=== PATIENT | male | born 1945 | race Caucasian/White ===

== ENCOUNTER 2020-06-21 06:00 | Outpatient (RCR) | payer MEDICARE, OTHER, SELFPAY | END 2020-06-29 23:59 | disposition home or self-care (01) | LOC: WPT 06:00 | PROVIDERS: PCP Nurse Practitioner Family; Referring Provider Nurse Practitioner Family; Visit Provider Nurse Practitioner Family | DX: M54.9 Dorsalgia, unspecified (principal); G89.29 Other chronic pain | CPT/HCPCS: 97110; 97162 ==

== ENCOUNTER 2020-06-30 06:00 | Outpatient (RCR) | payer MEDICARE, OTHER, SELFPAY | END 2020-07-30 23:59 | disposition home or self-care (01) | LOC: WPT 06:00 | PROVIDERS: PCP Nurse Practitioner Family; Referring Provider Nurse Practitioner Family; Visit Provider Nurse Practitioner Family | DX: M54.9 Dorsalgia, unspecified (principal); G89.29 Other chronic pain | CPT/HCPCS: 97110; 97112; 97140 ==

== ENCOUNTER 2020-07-31 06:00 | Outpatient (RCR) | payer MEDICARE, OTHER, SELFPAY | END 2020-08-29 23:59 | disposition home or self-care (01) | LOC: WPT 06:00 | PROVIDERS: PCP Nurse Practitioner Family; Referring Provider Nurse Practitioner Family; Visit Provider Nurse Practitioner Family | DX: M54.9 Dorsalgia, unspecified (principal); G89.29 Other chronic pain | CPT/HCPCS: 97110; 97140; 97164 ==

== ENCOUNTER 2020-08-30 06:00 | Outpatient (RCR) | payer MEDICARE, OTHER, SELFPAY | END 2020-09-29 23:59 | disposition home or self-care (01) | LOC: WPT 06:00 | PROVIDERS: PCP Nurse Practitioner Family; Referring Provider Nurse Practitioner Family; Visit Provider Nurse Practitioner Family | DX: M54.9 Dorsalgia, unspecified (principal); G89.29 Other chronic pain | CPT/HCPCS: 97110; 97140 ==

== ENCOUNTER → 2022-01-24 12:06 | Outpatient (BNVA) | payer MEDICARE, SELFPAY | PROVIDERS: PCP Nurse Practitioner Family; Visit Provider Family Medicine | DX: Z70.8 Other sex counseling (principal); F41.9 Anxiety disorder, unspecified | CPT/HCPCS: 87806 ==

== ENCOUNTER → 2022-03-05 09:57 | Outpatient (BNVA) | payer MEDICARE, SELFPAY | PROVIDERS: PCP Nurse Practitioner Family; Visit Provider Nurse Practitioner | DX: R50.9 Fever, unspecified (principal); W57.XXXA Bitten or stung by nonvenomous insect and other nonvenomous arthropods, initial encounter | CPT/HCPCS: 85025; 86000; 86618; 86666; 86757 ==

== ENCOUNTER → 2022-05-03 15:04 | Outpatient (BNVA) | payer MEDICARE, SELFPAY | PROVIDERS: PCP Nurse Practitioner Family; Visit Provider Family Medicine | DX: Z70.8 Other sex counseling (principal) | CPT/HCPCS: 80053; 87806 ==

== ENCOUNTER → 2022-09-10 09:41 | Outpatient (BNVA) | payer MEDICARE, SELFPAY | PROVIDERS: Visit Provider Nurse Practitioner | DX: R50.9 Fever, unspecified (principal); Z20.822 Contact with and (suspected) exposure to COVID-19 | CPT/HCPCS: 87400; 87426 ==

== ENCOUNTER 2022-12-16 18:41 | Inpatient (IN) | payer MEDICARE, SELFPAY ==
[2022-12-16 18:42] VITALS: BP 150/75; PULSE 84; RESP 16; TEMP 36.7; O2SAT 99; BMI 25.2
[2022-12-16 19:12] VITALS: BP 128/84; PULSE 80; RESP 16; O2SAT 100
--- NOTE | 2022-12-16 19:15 | CTR_ITS ---
PROCEDURE INFORMATION: Exam: CT Abdomen And Pelvis Without Contrast Exam date and time: 12/16/2022 7:28 PM Age: 77 years old Clinical indication: Fever and other: Diverticulitis, difficulty urinating; Additional info: R/O perforation, abscess TECHNIQUE: Imaging protocol: Computed tomography of the abdomen and pelvis without contrast. Radiation optimization: All CT scans at this facility use at least one of these dose optimization techniques: automated exposure control; mA and/or kV adjustment per patient size (includes targeted exams where dose is matched to clinical indication); or iterative reconstruction. REPORTING DATA: Count of CT and Cardiac NM exams in prior 12 months: This patient has received 0 known CTs and 0 known cardiac nuclear medicine studies in the 12 months prior to the current study. COMPARISON: CT abdomen pelvis w con* [id number] 05/08/2019 12:05 PM RADIATION DOSE METRICS: Total DLP (mGy-cm): 626.09 FINDINGS: Liver: Normal. No mass. Gallbladder and bile ducts: Normal. No calcified stones. No ductal dilation. Pancreas: Normal. No ductal dilation. Spleen: Normal. No splenomegaly. Adrenal glands: Normal. No mass. Kidneys and ureters: Left kidney cyst, negative for follow-up advised. Stomach and bowel: Mid sigmoid colon wall thickening with surrounding edema and nonlocalized fluid in the area of several diverticula consistent diverticulitis. Appendix: No evidence of appendicitis. Intraperitoneal space: Unremarkable. No free air. No significant fluid collection. Vasculature: Unremarkable. No abdominal aortic aneurysm. Lymph nodes: Unremarkable. No enlarged lymph nodes. Urinary bladder: Unremarkable as visualized. Reproductive: Nodular prostate gland enlargement. Bones/joints: Unremarkable. No acute fracture. Soft tissues: Unremarkable. Other findings: Small to moderate amount of nonspecific fluid in the pelvis. CT/CT abdomen pelvis wo con [id number] IMPRESSION: 1. Mid sigmoid colon diverticulitis. 2. Left kidney cyst, negative for follow-up advised. 3. Nodular prostate gland enlargement. 4. Small to moderate amount of nonspecific fluid in the pelvis. COMMENTS: Consistent with the [employer]'s Incidental Findings Committee white paper (J Am Tip Radiol 2018): Any incidental renal lesion less than 1 cm or classified as too small to characterize, or any incidental cystic renal lesion characterized as simple-appearing, is likely benign. No follow-up imaging is recommended for these lesions per consensus recommendations based on imaging criteria.
--- NOTE | 2022-12-16 19:16 | W.ED.ABDPA2 ---
Documented by User: HCERELLE Crawford 12/16/22 20:22 HPI - Abdominal Pain General: Chief Complaint: Abdominal Pain Stated Complaint: fever Time Seen by Provider: 12/16/22 19:04 History of Present Illness: 77-year-old male patient comes in today with abdominal pain and discomfort starting this morning. Patient was seen at the emergency department in [place] and was diagnosed with diverticulitis. Patient appears nontoxic. Patient does appear mildly unwell. Patient appears in mild to moderate pain. Patient has a history of chronic constipation which he uses milk of magnesia routinely 4, anxiety disorder, tachybradycardia syndrome, vitamin D deficiency, and chronic back pain. Patient was started on Levaquin and Flagyl at [place] [facility] this morning. Patient became concerned due to elevation in temperature of 100.6 at home. Associated Symptoms: Reports fever(s); Denies constipation, diarrhea, hematochezia and vomiting Review of Systems General: Reports: 10 or more systems reviewed and unremarkable except in HPI and below Const: Reports: fever(s) and body aches Card: Denies: chest pain Resp: Denies: dyspnea GI: Reports: abdominal pain; Denies: vomiting, diarrhea, constipation or hematochezia : Denies: difficulty urinating Musc: Denies: neck pain Skin/Breast: Denies: rash PFSH ED PFSH: Medical History (Updated 12/17/22 @ 00:20 by Jaxon Donovan DO) Anxiety BPH (benign prostatic hyperplasia) Chronic back pain greater than 3 months duration Chronic fatigue Chronic migraine DDD (degenerative disc disease) History of chronic constipation History of prostatitis Hypothyroidism Tachy-sofia syndrome Vitamin D deficiency Zenker's diverticulum Surgical History H/O knee surgery Hx of tonsillectomy Family History Father COPD (chronic obstructive pulmonary disease) Social History Smoking and tobacco status: never smoked Second hand smoke exposure: No Smoking risk assessment/counseling performed?: No Alcohol intake: never Desire information about alcohol rehabilitation?: No Counseling given: No Physical Exam Const: COMMON NORMALS: alert HENMT: COMMON NORMALS: normocephalic HEAD & SCALP: normocephalic MOUTH: Normal oral and palatal mucosa present Neck/C-Spine: COMMON NORMALS: full ROM Resp: COMMON NORMALS: normal respiratory effort and clear to auscultation bilaterally AUSCULTATION: clear to auscultation bilaterally Cardio: COMMON NORMALS: regular rate and regular rhythm RATE: regular rate RHYTHM: regular rhythm GI: COMMON NORMALS: Soft to palpation INSPECTION: Yes normal to inspection AUSCULTATION: Yes normoactive bowel sounds PALPATION: Yes Soft to palpation and Yes Tenderness to palpation present (GI) (Lower abdominal) : COMMON NORMALS: Yes no CVA tenderness BLADDER/KIDNEY EXAM: Yes no CVA tenderness Back/Pelvis: COMMON NORMALS: no CVA tenderness Extremity: COMMON NORMALS: no pedal edema Neuro: SENSORIUM/ORIENTATION: Yes alert Skin: COMMON NORMALS: turgor normal GENERAL SKIN EXAM: turgor normal Course ED course: 1939, discussed patient with Dr. Donovan, attending ER physician, regarding patient's diverticulitis diagnosis this morning. He agreed with plan to repeat labs and radiology to rule out perforation of diverticula and sepsis. Then we may seek admission to the hospital for further treatment of diverticulitis and monitoring. Vital Signs: Vital signs: Vital Signs Temperature 100.3 F H 12/17/22 00:00 Pulse Rate 80 12/17/22 00:00 Respiratory Rate 18 12/17/22 00:00 Blood Pressure 124/66 12/17/22 00:00 Pulse Oximetry 99 12/17/22 00:00 Oxygen Delivery Me thod 12/17/22 00:00 MDM - Abdominal Pain Medical Decision Making 7-year-old male patient comes in today with a diagnosis of diverticulitis, patient reports worsening abdominal pain and fever. Patient just started on antibiotics this morning to include Levaquin and Flagyl. Patient has had 1 dose of Levaquin and 3 doses of Flagyl. On exam abdomen soft normal active bowel sounds. Vital signs are normal except for some elevation in blood pressure at 150 systolic. Differential diagnosis includes perforation of the bowel, abscess, diverticulitis, bowel obstruction. Repeat CT noted sigmoid diverticulitis with a small amount of fluid in the pelvis but no free air. CBC to had a increase in the white blood cell count 11,000, patient was reviewed with Dr. Donovan who will admit patient to hospitalist. Lab Data 12/16/22 19:51 12/16/22 19:51 Labs/Radiology: Radiology Impressions Abdomen/Pelvis CT 12/16/22 19:15 IMPRESSION: 1. Mid sigmoid colon diverticulitis. 2. Left kidney cyst, negative for follow-up advised. 3. Nodular prostate gland enlargement. 4. Small to moderate amount of nonspecific fluid in the pelvis. COMMENTS: Consistent with the [employer]'s Incidental Findings Committee white paper (J Am Tip Radiol 2018): Any incidental renal lesion less than 1 cm or classified as too small to characterize, or any incidental cystic renal lesion characterized as simple-appearing, is likely benign. No follow-up imaging is recommended for these lesions per consensus recommendations based on imaging criteria. Laboratory Results WBC 11.2 10^3/uL (4.0-10.0) H 12/16/22 19:51 RBC 4.48 10^6/uL (4.1-5.3) 12/16/22 19:51 Hgb 13.7 g/dL (11.7-16.6) 12/16/22 19:51 Hct 41.2 % (42.0-52.0) L 12/16/22 19:51 MCV 92.0 fl (80-94) 12/16/22 19:51 MCH 30.6 pg (28.0-34.0) 12/16/22 19:51 MCHC 33.3 g/dL (30.0-36.0) 12/16/22 19:51 RDW 12.1 % (12.1-15.1) 12/16/22 19:51 Plt Count 182 10^3/cmm (130-400) 12/16/22 19:51 MPV 9.8 fL (7.4-10.4) 12/16/22 19:51 Neut % (Auto) 80.9 % 12/16/22 19:51 Lymph % (Auto) 9.3 % 12/16/22 19:51 [place] % (Auto) 9.0 % 12/16/22 19:51 Eos % (Auto) 0.1 % 12/16/22 19:51 Baso % (Auto) 0.4 % 12/16/22 19:51 Neut # (Auto) 9.10 10^3/uL (1.8-7.7) H 12/16/22 19:51 Lymph # (Auto) 1.1 10^3/uL (0.8-4.8) 12/16/22 19:51 [place] # (Auto) 1.0 10^3/uL (0.2-0.9) H 12/16/22 19:51 Eos # (Auto) 0.0 10^3/uL (0.0-0.8) 12/16/22 19:51 Baso # (Auto) 0.0 10^3/uL (0.0-0.1) 12/16/22 19:51 Nucleated RBC % (auto) 0 % 12/16/22 19:51 Nucleated RBCs # 0.0 /100WBC 12/16/22 19:51 ESR 6 mm/hr (0-10) 12/16/22 19:51 Sodium 131 mmol/L (136-145) L 12/16/22 19:51 Potassium 3.9 mmol/L (3.5-5.1) 12/16/22 19:51 Chloride 95 mmol/L (98-107) L 12/16/22 19:51 Carbon Dioxide 25 mmol/L (22-29) 12/16/22 19:51 Anion Gap 14.9 (5-19) 12/16/22 19:51 BUN 9 mg/dL (8-23) 12/16/22 19:51 Creatinine 0.9 mg/dL (0.7-1.2) 12/16/22 19:51 GFR Calculation Not Reportable 12/16/22 19:51 Glucose 100 mg/dL (65-115) 12/16/22 19:51 Calculated Osmolality 271 mOsm/kg (285-295) L 12/16/22 19:51 Lactic Acid 1.8 mmol/L (0.5-2.2) 12/16/22 19:51 Calcium 9.1 mg/dL (8.5-10.5) 12/16/22 19:51 Magnesium 1.8 mg/dL (1.7-2.3) 12/16/22 19:51 Total Bilirubin 1.0 mg/dL (0.15-1.2) 12/16/22 19:51 AST 17 U/L (0-40) 12/16/22 19:51 ALT 14 U/L (0-41) 12/16/22 19:51 Alkaline Phosphatase 89 U/L (40-130) 12/16/22 19:51 C-Reactive Protein 63.0 mg/L (0.0-4.9) H 12/16/22 19:51 Total Protein 6.9 g/dL (6.6-8.7) 12/16/22 19:51 Albumin 4.3 g/dL (3.5-5.2) 12/16/22 19:51 Globulin 2.6 g/dL (1.3-4.6) 12/16/22 19:51 Urine Color Yellow (Yellow) 12/16/22 19:25 Urine Appearance Clear (CLEAR) 12/16/22 19:25 Urine pH 7 (5-7) 12/16/22 19:25 Ur Specific [place] 1.005 (1.005-1.030) 12/16/22 19:25 Urine Protein Neg (Negative) 12/16/22 19:25 Urine Glucose (UA) Norm (Normal) 12/16/22 19:25 Urine Ketones 1+ (Negative) H 12/16/22 19:25 Urine Blood Neg (Negative) 12/16/22 19:25 Urine Nitrate Negative (Negative) 12/16/22 19:25 Urine Bilirubin Neg (Negative) 12/16/22 19:25 Urine Urobilinogen Norm mg/dL (Negative) 12/16/22 19:25 Ur Leukocyte Esterase Negative (Negative) 12/16/22 19:25 Influenza Type A Ag negative (Negative) 12/16/22 20:00 Influenza Type B Ag negative (Negative) 12/16/22 20:00 SARS-CoV-2 Ag (Rapid) negative (Negative) 12/16/22 20:00 Discharge Plan Discharge Patient Disposition: Placed in Observation Admit Provider: Pa Potts Clinical Impression: SIRS (systemic inflammatory response syndrome) Coding Level of Care Code ED Supervisor [employer]itting [employer] for Chg Annied Documented by User: Jaxon Donovan DO 12/17/22 00:20 HPI - Abdominal Pain General: Chief Complaint: Abdominal Pain Stated Complaint: fever Time Seen by Provider: 12/16/22 19:04 [facility] ED PFSH: Medical History (Updated 12/17/22 @ 00:20 by Jaxon Donovan DO) Anxiety BPH (benign prostatic hyperplasia) Chronic back pain greater than 3 months duration Chronic fatigue Chronic migraine DDD (degenerative disc disease) History of chronic constipation History of prostatitis Hypothyroidism Tachy-sofia syndrome Vitamin D deficiency Zenker's diverticulum Surgical History H/O knee surgery Hx of tonsillectomy Family History Father COPD (chronic obstructive pulmonary disease) Social History Smoking and tobacco status: never smoked Second hand smoke exposure: No Smoking risk assessment/counseling performed?: No Alcohol intake: never Desire information about alcohol rehabilitation?: No Counseling given: No Course Vital Signs: Vital signs: Vital Signs Temperature 100.3 F H 12/17/22 00:00 Pulse Rate 80 12/17/22 00:00 Respiratory Rate 18 12/17/22 00:00 Blood Pressure 124/66 12/17/22 00:00 Pulse Oximetry 99 12/17/22 00:00 Oxygen Delivery Me thod 12/17/22 00:00 MDM - Abdominal Pain Medical Decision Making 7-year-old male patient comes in today with a diagnosis of diverticulitis, patient reports worsening abdominal pain and fever. Patient just started on antibiotics this morning to include Levaquin and Flagyl. Patient has had 1 dose of Levaquin and 3 doses of Flagyl. On exam abdomen soft normal active bowel sounds. Vital signs are normal except for some elevation in blood pressure at 150 systolic. Differential diagnosis includes perforation of the bowel, abscess, diverticulitis, bowel obstruction. Repeat CT noted sigmoid diverticulitis with a small amount of fluid in the pelvis but no free air. CBC to had a increase in the white blood cell count 11,000, patient was reviewed with Dr. Donovan who will admit patient to hospitalist. This patient was originally seen by CHERELLE Johnson.? I agree with his history, evaluation, and treatment. Spoke with the hospitalist for admission. He agrees and will see the patient in the emergency department. Lab Data 12/16/22 19:51 12/16/22 19:51 Labs/Radiology: Radiology Impressions Abdomen/Pelvis CT 12/16/22 19:15 IMPRESSION: 1. Mid sigmoid colon diverticulitis. 2. Left kidney cyst, negative for follow-up advised. 3. Nodular prostate gland enlargement. 4. Small to moderate amount of nonspecific fluid in the pelvis. COMMENTS: Consistent with the [employer]'s Incidental Findings Committee white paper (J Am Tip Radiol 2018): Any incidental renal lesion less than 1 cm or classified as too small to characterize, or any incidental cystic renal lesion characterized as simple-appearing, is likely benign. No follow-up imaging is recommended for these lesions per consensus recommendations based on imaging criteria. Laboratory Results WBC 11.2 10^3/uL (4.0-10.0) H 12/16/22 19:51 RBC 4.48 10^6/uL (4.1-5.3) 12/16/22 19:51 Hgb 13.7 g/dL (11.7-16.6) 12/16/22 19:51 Hct 41.2 % (42.0-52.0) L 12/16/22 19:51 MCV 92.0 fl (80-94) 12/16/22 19:51 MCH 30.6 pg (28.0-34.0) 12/16/22 19:51 MCHC 33.3 g/dL (30.0-36.0) 12/16/22 19:51 RDW 12.1 % (12.1-15.1) 12/16/22 19:51 Plt Count 182 10^3/cmm (130-400) 12/16/22 19:51 MPV 9.8 fL (7.4-10.4) 12/16/22 19:51 Neut % (Auto) 80.9 % 12/16/22 19:51 Lymph % (Auto) 9.3 % 12/16/22 19:51 [place] % (Auto) 9.0 % 12/16/22 19:51 Eos % (Auto) 0.1 % 12/16/22 19:51 Baso % (Auto) 0.4 % 12/16/22 19:51 Neut # (Auto) 9.10 10^3/uL (1.8-7.7) H 12/16/22 19:51 Lymph # (Auto) 1.1 10^3/uL (0.8-4.8) 12/16/22 19:51 [place] # (Auto) 1.0 10^3/uL (0.2-0.9) H 12/16/22 19:51 Eos # (Auto) 0.0 10^3/uL (0.0-0.8) 12/16/22 19:51 Baso # (Auto) 0.0 10^3/uL (0.0-0.1) 12/16/22 19:51 Nucleated RBC % (auto) 0 % 12/16/22 19:51 Nucleated RBCs # 0.0 /100WBC 12/16/22 19:51 ESR 6 mm/hr (0-10) 12/16/22 19:51 Sodium 131 mmol/L (136-145) L 12/16/22 19:51 Potassium 3.9 mmol/L (3.5-5.1) 12/16/22 19:51 Chloride 95 mmol/L (98-107) L 12/16/22 19:51 Carbon Dioxide 25 mmol/L (22-29) 12/16/22 19:51 Anion Gap 14.9 (5-19) 12/16/22 19:51 BUN 9 mg/dL (8-23) 12/16/22 19:51 Creatinine 0.9 mg/dL (0.7-1.2) 12/16/22 19:51 GFR Calculation Not Reportable 12/16/22 19:51 Glucose 100 mg/dL (65-115) 12/16/22 19:51 Calculated Osmolality 271 mOsm/kg (285-295) L 12/16/22 19:51 Lactic Acid 1.8 mmol/L (0.5-2.2) 12/16/22 19:51 Calcium 9.1 mg/dL (8.5-10.5) 12/16/22 19:51 Magnesium 1.8 mg/dL (1.7-2.3) 12/16/22 19:51 Total Bilirubin 1.0 mg/dL (0.15-1.2) 12/16/22 19:51 AST 17 U/L (0-40) 12/16/22 19:51 ALT 14 U/L (0-41) 12/16/22 19:51 Alkaline Phosphatase 89 U/L (40-130) 12/16/22 19:51 C-Reactive Protein 63.0 mg/L (0.0-4.9) H 12/16/22 19:51 Total Protein 6.9 g/dL (6.6-8.7) 12/16/22 19:51 Albumin 4.3 g/dL (3.5-5.2) 12/16/22 19:51 Globulin 2.6 g/dL (1.3-4.6) 12/16/22 19:51 Urine Color Yellow (Yellow) 12/16/22 19:25 Urine Appearance Clear (CLEAR) 12/16/22 19:25 Urine pH 7 (5-7) 12/16/22 19:25 Ur Specific [place] 1.005 (1.005-1.030) 12/16/22 19:25 Urine Protein Neg (Negative) 12/16/22 19:25 Urine Glucose (UA) Norm (Normal) 12/16/22 19:25 Urine Ketones 1+ (Negative) H 12/16/22 19:25 Urine Blood Neg (Negative) 12/16/22 19:25 Urine Nitrate Negative (Negative) 12/16/22 19:25 Urine Bilirubin Neg (Negative) 12/16/22 19:25 Urine Urobilinogen Norm mg/dL (Negative) 12/16/22 19:25 Ur Leukocyte Esterase Negative (Negative) 12/16/22 19:25 Influenza Type A Ag negative (Negative) 12/16/22 20:00 Influenza Type B Ag negative (Negative) 12/16/22 20:00 SARS-CoV-2 Ag (Rapid) negative (Negative) 12/16/22 20:00 Discharge Plan Discharge Patient Disposition: Placed in Observation Admit Provider: Pa Potts Clinical Impression: SIRS (systemic inflammatory response syndrome) Coding Level of Care Code ED Supervisor Slitting [employer] for Shankar Smith
[2022-12-16 19:36] LABS: Add Urine Microscopic? NO; Charge for UA Resulting for Rev
[2022-12-16 19:44] LABS: Bilirubin Urine Neg (Negative); Blood Urine Neg (Negative); Glucose Urine UA Norm (Normal); Ketones Urine 1+ (Negative); Leukocyte Esterase Urine Negative (Negative); Nitrate Urine Negative (Negative); Protein Urine Neg (Negative); Specific Gravity, Urine 1.005 (1.005-1.030); Urine Appearance Clear (CLEAR); Urine Color Yellow (Yellow); Urobilinogen Urine Norm (Negative); pH Urine 7 (5-7)
[2022-12-16] MEDS: sodium chloride 0.9% 500 ML 999 ML IV (19:58)
[2022-12-16] MEDS: ondansetron 2 mg/ML SDV 2 mL 4 MG IVP (19:59)
[2022-12-16 20:01] VITALS: RESP 16; O2SAT 98
[2022-12-16] MEDS: morphine 4 mg/mL SDV 1 mL IVP (20:01)
[2022-12-16 20:06] LABS: Basophils % 0.4 %; Eosinophils % 0.1 %; Hematocrit 41.2 % (42.0-52.0); Hemoglobin 13.7 g/dL (11.7-16.6); Lymphocytes # 1.1 10^3/uL (0.8-4.8); Lymphocytes % 9.3 %; Mean Corpuscular HGB Conc 33.3 g/dL (30.0-36.0); Mean Corpuscular Hemoglobin 30.6 pg (28.0-34.0); Mean Platelet Volume 9.8 fL (7.4-10.4); Neutrophils % 80.9 %; Nucleated Red Blood Cells % 0 %; Platelet Count 182 10^3/cmm (130-400); Red Blood Count 4.48 10^6/uL (4.1-5.3); Red Cell Distribution Width 12.1 % (12.1-15.1); White Blood Count 11.2 10^3/uL (4.0-10.0)
[2022-12-16 20:18] LABS: Erythrocyte Sedimentation Rate 6 mm/hr (0-10)
[2022-12-16 20:31] LABS: Lactic Sepsis W/Reflex 1.8 mmol/L (0.5-2.2)
[2022-12-16 20:32] LABS: Alanine Aminotransferase 14 U/L (0-41); Albumin Level 4.3 g/dL (3.5-5.2); Alkaline Phosphatase 89 U/L (40-130); Anion Gap 14.9 (5-19); Aspartate Amino Transferase 17 U/L (0-40); Blood Urea Nitrogen 9 mg/dL (8-23); Calcium 9.1 mg/dL (8.5-10.5); Carbon Dioxide 25 mmol/L (22-29); Chloride 95 mmol/L (98-107); Creatinine Clr Calc Pharmacy 73.6291; Globulin 2.6 g/dL (1.3-4.6); Glucose 100 mg/dL (65-115); Magnesium 1.8 mg/dL (1.7-2.3); Osmolality Calculated 271 mOsm/kg (285-295); Potassium 3.9 mmol/L (3.5-5.1); Sodium 131 mmol/L (136-145); Total Protein 6.9 g/dL (6.6-8.7)
[2022-12-16 20:34] LABS: Influenza A by IFA negative (Negative); Influenza B by IFA negative (Negative); SARS Covid-2 Antigen negative (Negative)
--- NOTE | 2022-12-16 21:07 | PM.HP ---
Providers/Chief Complaint Primary Care Provider: Jorje Bentley MD Chief Complaint: fever History of Present Illness 77-year-old gentleman with history of chronic constipation/bowel inertia, takes milk of magnesia every third day, came in initially for evaluation to [facility] due to central lower abdominal pressure, pain, discomfort, having difficulty urinating, thought he was developing urinary tract infection. States that on assessment there he was found to have diverticulitis, no urinary infection, and has since started being able to urinate again. States that it was recommended for him to be watched in the hospital where, however, he decided to return home, and was advised to return in case he spiked a fever of greater than 100.4. He was given prescription for Levaquin and Flagyl and reportedly is taking Levaquin and 3 doses of Flagyl so far. He states that prior to visiting [place] [facility] he did take Cipro for about 2 days. On returning home he continued to have lower abdominal pain, spiked a fever 100.6 Fahrenheit and so return to the ER for evaluation. Here he was reassessed with noncontrast CT abdomen pelvis with finding of mild sigmoid colon diverticulitis, left kidney cyst negative for follow-up advised, nodular prostate gland enlargement, small to moderate amount of nonspecific fluid in the pelvis. He is noted to have predominantly neutrophilic leukocytosis 11.2. Sodium 131. CRP 63. Unremarkable UA. Negative rapid flu and COVID. In ER he is noted hypertensive, 150/77. He states that normally his blood pressure runs 120s/70s. He states he does not feel anxious currently but says he is not sure what has caused his blood pressure to show up elevated. I must have popped something when I got up . Both he and his looking up at the monitor concerned that it has not recycled in the last 20 minutes. Review of Systems Const: Denies: fever(s), chills, body aches or malaise Eyes: Denies: change in vision, eye discomfort or eye redness ENMT: Denies: throat pain, oral sores or ear or mastoid pain Card: Denies: chest pain, edema, pre-syncope or dyspnea on exertion Resp: Denies: dyspnea, productive cough, change in phlegm color or hemoptysis GI: Denies: abdominal pain, nausea, vomiting, diarrhea, constipation, hematochezia or melena : Denies: flank pain, difficulty urinating, urinary frequency or hematuria Musc: Denies: back pain, joint swelling or joint redness Skin/Breast: Denies: rash or new lesions Neuro: Denies: headache(s), numbness in extremities, weakness in extremities, dizziness, confusion or seizure-like activity Endo: Denies: polyuria or polydipsia Yevgeniy/Lymph: Denies: easy bleeding or tender lymph nodes All/Imm: Denies: urticaria or tongue swelling Medications/Allergies Home Medications Medication Instructions Recorded Confirmed Last Taken Type selenium sulfide 2.5 % lotion each topical 06/02/20 11/02/22 Unknown History fluticasone propionate 50 1 spray intranasal DAILY 10/04/20 11/02/22 Unknown History mcg/actuation nasal spray,suspension (Allergy Relief (fluticasone)) ergocalciferol (vitamin D2) 1,250 50,000 unit PO .weekly #4 caps 11/08/20 11/02/22 Unknown Rx mcg (50,000 unit) capsule esomeprazole magnesium 40 mg See Rx Instructions .Route 02/01/21 11/02/22 Unknown Rx capsule,delayed release .COMPLEX #90 caps azelastine 137 mcg (0.1 %) nasal 1 spray intranasal BID 12/25/21 11/02/22 Unknown History spray aerosol thyroid (pork) 30 mg tablet 30 mg PO DAILY #90 tabs 12/25/21 11/02/22 Unknown Rx ([place] Thyroid) emtricitabine 200 mg-tenofovir See Rx Instructions PO DAILY #30 01/24/22 11/02/22 Unknown Rx disoproxil fumarate 300 mg tablet tabs (Truvada) jieqbfsvqi-owkdtpk-lzidpfhu 50 1 cap PO DAILY PRN pain 30 days 11/02/22 11/02/22 Unknown Rx mg-325 mg-40 mg capsule #30 caps clonazepam 2 mg tablet 4 mg PO .nightly PRN anxiety 30 11/02/22 11/02/22 Unknown Rx days #60 tabs lactulose 20 gram/30 mL oral 30 g (45 mL) PO DAILY PRN 11/02/22 11/02/22 Unknown Rx solution constipation #1,200 mL Allergies Allergy/AdvReac Type Severity Reaction Status Date / Time No Known Allergies Allergy Verified 11/02/22 15:13 PFSH Acute PFSH: Medical History (Updated 12/16/22 @ 21:20 by Pa Potts MD) Anxiety BPH (benign prostatic hyperplasia) Chronic back pain greater than 3 months duration Chronic fatigue Chronic migraine DDD (degenerative disc disease) History of chronic constipation History of prostatitis Hypothyroidism Tachy-sofia syndrome Vitamin D deficiency Zenker's diverticulum Surgical History H/O knee surgery Hx of tonsillectomy Family History Father COPD (chronic obstructive pulmonary disease) Social History Smoking and tobacco status: never smoked Second hand smoke exposure: No Smoking risk assessment/counseling performed?: No Alcohol intake: never Desire information about alcohol rehabilitation?: No Counseling given: No Vitals/I&O/Wt Last Vital Signs Temp 98.1 F 12/16/22 18:42 Pulse 80 12/16/22 19:12 Resp 16 12/16/22 20:01 BP 128/84 12/16/22 19:12 Pulse Ox 98 12/16/22 20:01 O2 Del Method 12/16/22 19:12 12/16/22 12/16/22 12/16/22 06:59 14:59 22:59 Intake Total 500 / 500 Balance 500 / 500 Weight last 48 hrs Weight 79.832 kg Physical Exam Const: COMMON NORMALS: patient oriented x3 and alert GENERAL APPEARANCE: cooperative ORIENTATION/CONSCIOUSNESS: Yes awake HENMT: COMMON NORMALS: oropharynx normal Neck/C-Spine: COMMON NORMALS: no JVD Resp: COMMON NORMALS: normal respiratory effort and clear to auscultation bilaterally AUSCULTATION: clear to auscultation bilaterally Cardio: COMMON NORMALS: no JVD, regular rhythm, S1 normal heart sound present, S2 normal heart sound present and No murmurs present (Cardio) RHYTHM: regular rhythm HEART SOUNDS: S1 normal heart sound present and S2 normal heart sound present GI: COMMON NORMALS: Normal to inspection, nondistended, normoactive bowel sounds present and Soft to palpation PALPATION: Yes Soft to palpation and Yes Tenderness to palpation present (GI) Details: other (Lower abdomen) Extremity: COMMON NORMALS: no joint enlargement and no pedal edema Neuro: COMMON NORMALS: patient oriented x3 and moves all extremities SENSORIUM/ORIENTATION: Yes alert Skin: COMMON NORMALS: no rashes or lesions noted GENERAL SKIN EXAM: no rashes or lesions noted Data 12/16/22 19:51 12/16/22 19:51 A&P Assessment and plan (1) Sigmoid diverticulitis: He is concerned and has follow directions from the other hospital to return for assessment due to persistent pain and spiking a fever 100.6. No leukocytosis. Free fluid in pelvis. No obvious signs of perforation on repeat CT. Bowel rest with ice chips and sips. Gentle IV hydration. Continue antibiotic coverage with ciprofloxacin and Flagyl. Follow-up for consideration of colonoscopy after 6 weeks, he has had prior episodes of diverticulitis as well, and states that he has an appointment scheduled in January with gastroenterology which would be a good time to discuss additional assessment by endoscopy, he states that he is wanting to ask them about colon resection. Reassessment CBC requested. Discussed with ER physician. ER documentation reviewed. (2) Free fluid in pelvis: Observation in the hospital with persistent symptoms. (3) SIRS (systemic inflammatory response syndrome): (4) Elevated blood pressure reading: In ER blood pressure elevated 150/77, recheck 160/78. He and his spouse found this concerning. Reassured him likely elevation secondary to acute health issue, visit to ER, and/or may have episodic hypertension also unknown at home on revealed without continuous monitor Additionally looks like he has received a fluid bolus, may be contributing. Currently is NPO. Consider cardiac diet once resumed. Monitor blood pressures. In case persistent elevation, consider whether may benefit from addition of therapeutic agent. Encouraged him to continue monitoring blood pressure at home. (5) BPH (benign prostatic hyperplasia): He does state that he gets nocturia sometimes up to 5-6 times a day, during the day sometimes he urinates up to 10 times a day. He is being followed with regards to this with his primary provider and has declined Flomax. Plan Mild hyponatremia: Suspect a degree of hypovolemia, he states he has not eaten in about 2 days. Gentle IV hydration. Reassessment chemistry requested. History of recurrent Zenker's diverticulum History of esophageal perforation with attempted repair of Zenker's diverticulum Anxiety Chronic back pain Chronic migraine DDD Hypothyroidism Vitamin D deficiency Requesting medications to be confirmed. Please reconcile once available. Attestations Medical Necessity Statement*: Place in observation for further assessment and management of sigmoid diverticulitis with lower abdominal pain, fever, symptoms so far unimproved despite prior hospital visit. Diagnoses Sigmoid diverticulitis K57.32 Free fluid in pelvis R18.8 SIRS (systemic inflammatory response syndrome) R65.10 Elevated blood pressure reading R03.0 BPH (benign prostatic hyperplasia) N40.0
[2022-12-16 21:39] VITALS: BP 138/68; PULSE 98; RESP 16; O2SAT 98
[2022-12-16 22:20] VITALS: BP 131/66; PULSE 91; PULSE 92; RESP 22; TEMP 37.9; O2SAT 99; BMI 24.3
[2022-12-16] MEDS: CLONazepam 1 mg Tablet 4 MG PO (23:02)
[2022-12-16] MEDS: ciprofloxacin 400 MG/200 ML PREMIX 200 MG IV (23:03)
[2022-12-16] MEDS: heparin 5,000 unit/mL INJ 1 mL 5000 UNIT SUBCUT (23:05)
[2022-12-16] MEDS: lactated ringers 1,000 ML 30 ML IV (23:06)
[2022-12-17] VITALS (12 sets, daily range): BP systolic 108–132; BP diastolic 55–68; PULSE 58–80; RESP 12–27; TEMP 36.8–37.9; O2SAT 94–99
[2022-12-17] MEDS: metroNIDAZOLE IV 500 MG/100 ML PREMIX 100 MG IV ×3 (04:08→20:08)
[2022-12-17 04:39] LABS: Basophils % 0.5 %; Eosinophils % 0.3 %; Hematocrit 35.9 % (42.0-52.0); Hemoglobin 11.7 g/dL (11.7-16.6); Lymphocytes # 1.7 10^3/uL (0.8-4.8); Lymphocytes % 21.9 %; Mean Corpuscular HGB Conc 32.6 g/dL (30.0-36.0); Mean Corpuscular Hemoglobin 30.6 pg (28.0-34.0); Mean Platelet Volume 9.9 fL (7.4-10.4); Monocytes % 13.1 %; Neutrophils # 4.96 10^3/uL (1.8-7.7); Neutrophils % 63.8 %; Nucleated Red Blood Cells % 0 %; Platelet Count 156 10^3/cmm (130-400); Red Blood Count 3.82 10^6/uL (4.1-5.3); Red Cell Distribution Width 12.1 % (12.1-15.1); White Blood Count 7.8 10^3/uL (4.0-10.0)
--- NOTE | 2022-12-17 04:57 | PC.NURSE ---
Report called to RN on [facility]. Patient VSS.
[2022-12-17 04:59] LABS: Anion Gap 10.7 (5-19); Blood Urea Nitrogen 8 mg/dL (8-23); Calcium 8.6 mg/dL (8.5-10.5); Carbon Dioxide 26 mmol/L (22-29); Chloride 104 mmol/L (98-107); Glucose 88 mg/dL (65-115); Osmolality Calculated 280 mOsm/kg (285-295); Potassium 4.7 mmol/L (3.5-5.1); Sodium 136 mmol/L (136-145)
--- NOTE | 2022-12-17 05:35 | PC.NURSE ---
Patient transferred to [facility] Surg room 276 via wheelchair. Vital signs stable, no patient requests. SINDI Nava made aware of patient belongings at bedside.
[2022-12-17] MEDS: pantoprazole DR 40 mg Tablet PO (08:29)
[2022-12-17] MEDS: thyroid 60 mg Tablet 30 MG PO (08:29)
[2022-12-17] MEDS: heparin 5,000 unit/mL INJ 1 mL 5000 UNIT SUBCUT ×2 (10:13→21:44)
[2022-12-17] MEDS: ciprofloxacin 400 MG/200 ML PREMIX 200 MG IV ×2 (10:14→21:45)
--- NOTE | 2022-12-17 10:49 | PC.CHAP ---
Pastoral Care Encounter/Spiritual Assessment Type of Contact [] Declined pin setter visit [] Patient/Family/Request visit [] Outpatient visit [] Follow-up visit [] Physician referral [] Code/Alert [] Routine visit [] Staff referral [] Actively dying [] Patient sleeping [] Family support [] [] Out of room [] Palliative care [] [x] Receiving care in room [] Pre-surgical visit [] Trauma [] Long length of stay [] ICU visit [] Other: Relational/Emotional Strength [] Patient feels connected with others/family/visitors/staff [] Distress [] Loneliness/isolation [] Abandonment Spirituality of Patient [] Person of Elaine [] Attends Congregational of their Elaine [] Believes in Prayer [] Reads Bible or Gnosticism materials [] There are Spiritual issues to be addressed Flaring Machine Operator Interventions [] Prayer [] Active listening [] Non-anxious presence [] Spiritual/emotional support [] Crisis/trauma care [] Spiritual counseling [] Bereavement support [] Provided bereavement packet [] Provided Bible/devotional materials [] Provided toy/stuffed animal, coloring book to patient or family member [] Provided Communion [] Anointing/[place] [] Salvation [] Completed spiritual assessment [] Other: Impact on Illness or Injury [] Angry [] Fearful [] Anxious [] Often cries [] Exhaustion [] Unable to work [] Unable to attend christian [] Unable to walk/stand [] Unable to read [] Unable to drive [] Unable to eat/drink [] Unable to sleep [] Unable to be with family [] Patient intubated [] Other: Summary Time spent with patient
[2022-12-17 11:23] LABS: Procalcitonin 0.12 ng/mL (0-0.5)
[2022-12-17 11:32] LABS: Thyroid Stimulating Hormone 2.29 uIU/mL (0.27-4.20); Vitamin B12 339 pg/mL (232-1245)
[2022-12-17 11:43] LABS: Iron 21 ug/dL (59-158); Percent Saturation 10.3 % (20-50); Total Iron Binding Capacity 202 mcg/dl; Unsaturated Iron Binding 181 ug/dL (112-347)
[2022-12-17] MEDS: magnesium hydroxide 30 mL UDC PO (13:12)
--- NOTE | 2022-12-17 13:15 | PM.PN ---
Subjective Subjective: Admitted overnight. H&P and labs appreciated. Seen with family at bedside. Patient states he is feeling a lot better. Denies any further abdominal pain. Passing flatus. Has not had a bowel movement. He states he has bowel movement only after taking MiraLAX. He took MiraLAX around 2 days ago and usually he uses MiraLAX every 3 to 4 days. For now he thinks he does not have any urge to have bowel movements. Denies any nausea, vomiting, headache. Has remained hemodynamically stable. Tmax since admission 100.1 Fahrenheit. Vitals/I&O/Wt Last Vital Signs Temp 98.2 F 12/17/22 11:42 Pulse 63 12/17/22 11:42 Resp 12 12/17/22 11:42 BP 132/63 12/17/22 11:42 Pulse Ox 97 12/17/22 11:42 O2 Del Method 12/17/22 11:42 12/16/22 12/17/22 12/17/22 22:59 06:59 14:59 Intake Total 500 / 500 350 / 850 300 / 300 Output Total 700 / 700 350 / 350 Balance 500 / 500 -350 / 150 -50 / -50 Weight last 48 hrs Weight 78.925 kg Weight 79.832 kg Physical Exam Const: COMMON NORMALS: patient oriented x3 and alert GENERAL APPEARANCE: cooperative ORIENTATION/CONSCIOUSNESS: Yes awake HENMT: COMMON NORMALS: oropharynx normal Neck/C-Spine: COMMON NORMALS: no JVD Resp: COMMON NORMALS: normal respiratory effort and clear to auscultation bilaterally AUSCULTATION: clear to auscultation bilaterally Cardio: COMMON NORMALS: no JVD, regular rhythm, S1 normal heart sound present, S2 normal heart sound present and No murmurs present (Cardio) RHYTHM: regular rhythm HEART SOUNDS: S1 normal heart sound present and S2 normal heart sound present GI: COMMON NORMALS: Normal to inspection, nondistended, normoactive bowel sounds present and Soft to palpation PALPATION: Yes Soft to palpation and Yes Tenderness to palpation present (GI) Extremity: COMMON NORMALS: no joint enlargement and no pedal edema Neuro: COMMON NORMALS: patient oriented x3 and moves all extremities SENSORIUM/ORIENTATION: Yes alert Skin: COMMON NORMALS: no rashes or lesions noted GENERAL SKIN EXAM: no rashes or lesions noted Data 12/17/22 04:19 12/17/22 04:19 A&P Assessment and plan (1) Sigmoid diverticulitis: Continue with gentle IV hydration. Conservative treatment with empiric antibiotics with ciprofloxacin and Flagyl. Stool studies when available. Discussed in detail with patient for possible need of reuse of MiraLAX to clean his gut. Patient at first was reluctant but later agreed. Protonix, Zofran as needed. Follow-up for consideration of colonoscopy after 6 weeks, he has had prior episodes of diverticulitis as well, and states that he has an appointment scheduled in January with gastroenterology which would be a good time to discuss additional assessment by endoscopy, he states that he is wanting to ask them about colon resection. (2) Free fluid in pelvis: Observation in the hospital with persistent symptoms. (3) SIRS (systemic inflammatory response syndrome): (4) Elevated blood pressure reading: Goal blood pressure less than 140/90 mmHg. We will continue to monitor. If needed will start patient on low-dose amlodipine. Encourage patient to continue checking his blood pressures at home. (5) BPH (benign prostatic hyperplasia): He does state that he gets nocturia sometimes up to 5-6 times a day, during the day sometimes he urinates up to 10 times a day. He is being followed with regards to this with his primary provider and has declined Flomax. Plan Mild hyponatremia: Resolved. Suspect a degree of hypovolemia, he states he has not eaten in about 2 days. Gentle IV hydration. Reassessment chemistry requested. History of recurrent Zenker's diverticulum History of esophageal perforation with attempted repair of Zenker's diverticulum Anxiety Chronic back pain Chronic migraine DDD Hypothyroidism Vitamin D deficiency Full code. Start on clear liquid diet. Protonix for PUD prophylaxis Heparin 5000 every 12 hourly for DVT prophylaxis. Attestations Medical Necessity Statement*: Requires further hospitalization for management of diverticulitis with failure of outpatient treatment Diagnoses Sigmoid diverticulitis K57.32 Free fluid in pelvis R18.8 SIRS (systemic inflammatory response syndrome) R65.10 Elevated blood pressure reading R03.0 BPH (benign prostatic hyperplasia) N40.0
[2022-12-17] MEDS: morphine 4 mg/mL SDV 1 mL 1 MG IVP (20:06)
[2022-12-18] VITALS: BP 117/66; PULSE 69; RESP 16; TEMP 36.8; O2SAT 96
[2022-12-18 04:00] VITALS: BP 117/67; PULSE 68; RESP 16; TEMP 36.6
[2022-12-18] MEDS: metroNIDAZOLE IV 500 MG/100 ML PREMIX 100 MG IV (05:27)
[2022-12-18 06:14] VITALS: PULSE 62
[2022-12-18 06:19] LABS: Basophils # 0.1 10^3/uL (0.0-0.1); Basophils % 0.9 %; Eosinophils # 0.1 10^3/uL (0.0-0.8); Eosinophils % 1.9 %; Hematocrit 36.9 % (42.0-52.0); Hemoglobin 12.1 g/dL (11.7-16.6); Lymphocytes # 1.7 10^3/uL (0.8-4.8); Lymphocytes % 28.4 %; Mean Corpuscular HGB Conc 32.8 g/dL (30.0-36.0); Mean Corpuscular Hemoglobin 30.4 pg (28.0-34.0); Mean Corpuscular Volume 92.7 fl (80-94); Monocytes # 0.8 10^3/uL (0.2-0.9); Monocytes % 12.8 %; Neutrophils # 3.25 10^3/uL (1.8-7.7); Neutrophils % 55.7 %; Nucleated Red Blood Cells % 0 %; Platelet Count 151 10^3/cmm (130-400); Red Blood Count 3.98 10^6/uL (4.1-5.3); Red Cell Distribution Width 12.2 % (12.1-15.1); White Blood Count 5.8 10^3/uL (4.0-10.0)
[2022-12-18 06:30] LABS: Estmated Average Glucose 85; Hemoglobin A1C 4.6 % (4.0-6.0)
[2022-12-18 06:37] LABS: Alanine Aminotransferase 10 U/L (0-41); Albumin Level 3.3 g/dL (3.5-5.2); Alkaline Phosphatase 52 U/L (40-130); Anion Gap 12.6 (5-19); Aspartate Amino Transferase 15 U/L (0-40); Blood Urea Nitrogen 8 mg/dL (8-23); Calcium 8.8 mg/dL (8.5-10.5); Carbon Dioxide 27 mmol/L (22-29); Chloride 104 mmol/L (98-107); Chol HDL Ratio 3.37 mg/dL (1.0-5.00); Cholesterol 128 mg/dL (0-200); Globulin 2.4 g/dL (1.3-4.6); Glucose 83 mg/dL (65-115); HDL Cholesterol 38 mg/dL (60-100); LDL Cholesterol Calculated 78 mg/dL (50-129); Osmolality Calculated 285 mOsm/kg (285-295); Potassium 4.6 mmol/L (3.5-5.1); Sodium 139 mmol/L (136-145); Total Bilirubin 0.4 mg/dL (0.15-1.2); Total Protein 5.7 g/dL (6.6-8.7); Triglycerides 62 mg/dL (0-150); VLDL Cholestrol Calculation 12 mg/dL (0-30)
[2022-12-18 08:00] VITALS: BP 124/60; PULSE 77; RESP 17; TEMP 36.6; O2SAT 99
[2022-12-18] MEDS: thyroid 60 mg Tablet 30 MG PO (08:29)
[2022-12-18] MEDS: pantoprazole DR 40 mg Tablet PO (08:29)
[2022-12-18] MEDS: lactated ringers 1,000 ML 30 ML IV (08:35)
--- NOTE | 2022-12-18 10:02 | PC.CHAP ---
Pastoral Care Encounter/Spiritual Assessment Type of Contact [] Declined it technical architect visit [] Patient/Family/Request visit [] Outpatient visit [] Follow-up visit [] Physician referral [] Code/Alert [x] Routine visit [] Staff referral [] Actively dying [x] Patient sleeping [] Family support [] [] Out of room [] Palliative care [] [] Receiving care in room [] Pre-surgical visit [] Trauma [] Long length of stay [] ICU visit [] Other: Relational/Emotional Strength [] Patient feels connected with others/family/visitors/staff [] Distress [] Loneliness/isolation [] Abandonment Spirituality of Patient [] Person of Elaine [] Attends Latter Day of their Elaine [] Believes in Prayer [] Reads Bible or Evangelical materials [] There are Spiritual issues to be addressed Grazing Aide Interventions [] Prayer [] Active listening [] Non-anxious presence [] Spiritual/emotional support [] Crisis/trauma care [] Spiritual counseling [] Bereavement support [] Provided bereavement packet [] Provided Bible/devotional materials [] Provided toy/stuffed animal, coloring book to patient or family member [] Provided Communion [] Anointing/[place] [] Salvation [] Completed spiritual assessment [] Other: Impact on Illness or Injury [] Angry [] Fearful [] Anxious [] Often cries [] Exhaustion [] Unable to work [] Unable to attend judaism [] Unable to walk/stand [] Unable to read [] Unable to drive [] Unable to eat/drink [] Unable to sleep [] Unable to be with family [] Patient intubated [] Other: Summary Time spent with patient
[2022-12-18] MEDS: ciprofloxacin 400 MG/200 ML PREMIX 200 MG IV (10:11)
[2022-12-18] MEDS: heparin 5,000 unit/mL INJ 1 mL 5000 UNIT SUBCUT (10:12)
--- NOTE | 2022-12-18 11:00 | P.DS_ITS ---
Discharge Providers Date of Admission: 12/17/22 20:58 Date of Discharge: December 18, 2022 Attending Provider at Admission: Pa Potts Attending Provider at Discharge: Celestine Dahl MD Primary Care Provider: Jorje Bentley MD Diagnoses at Discharge Discharge Diagnosis (1) Sigmoid diverticulitis: Status: Acute (2) Free fluid in pelvis: Status: Acute (3) SIRS (systemic inflammatory response syndrome): Status: Acute (4) Elevated blood pressure reading: Status: Acute (5) BPH (benign prostatic hyperplasia): Status: Acute Reason for Visit Reason for Visit: fever Brief History: History as per HPI: 77-year-old gentleman with history of chronic constipation/bowel inertia, takes milk of magnesia every third day, came in initially for evaluation to [facility] due to central lower abdominal pressure, pain, discomfort, having difficulty urinating, thought he was developing urinary tract infection.? States that on assessment there he was found to have diverticulitis, no urinary infection, and has since started being able to urinate again.? States that it was recommended for him to be watched in the hospital where, however, he decided to return home, and was advised to return in case he spiked a fever of greater than 100.4.? He was given prescription for Levaquin and Flagyl and reportedly is taking Levaquin and 3 doses of Flagyl so far.? He states that prior to visiting [place] [facility] he did take Cipro for about 2 days. On returning home he continued to have lower abdominal pain, spiked a fever 100.6 Fahrenheit and so return to the ER for evaluation.? Here he was reassessed with noncontrast CT abdomen pelvis with finding of mild sigmoid colon diverticulitis, left kidney cyst negative for follow-up advised, nodular prostate gland enlargement, small to moderate amount of nonspecific fluid in the pelvis. He is noted to have predominantly neutrophilic leukocytosis 11.2.? Sodium 131.? CRP 63.? Unremarkable UA.? Negative rapid flu and COVID. In ER he is noted hypertensive, 150/77.? He states that normally his blood pressure runs 120s/70s.? He states he does not feel anxious currently but says he is not sure what has caused his blood pressure to show up elevated.? I must have popped something when I got up .? Both he and his looking up at the monitor concerned that it has not recycled in the last 20 minutes. Hospital Course Hospital Course Patient was admitted to the hospital further evaluation and management of diverticulitis. He was started on IV fluids and empiric IV antibiotics. Patient was given an extra dose of milk of magnesia to clean out any possible GI infection. He responded well to the treatment and states symptoms are quite resolved. He is tolerating oral diet well. He has been discharged in medically stable condition on oral ciprofloxacin and Flagyl for next 5 days. He is advised to continue on full liquid to brat diet going forward for next 1 week and then advance gradually to a regular diet. He is advised in detail not to stop taking fibrous meals. He is also advised to use his milk of magnesia gut cleanout therapy Physical Exam Const: COMMON NORMALS: patient oriented x3 and alert GENERAL APPEARANCE: cooperative ORIENTATION/CONSCIOUSNESS: Yes awake HENMT: COMMON NORMALS: oropharynx normal Neck/C-Spine: COMMON NORMALS: no JVD Resp: COMMON NORMALS: normal respiratory effort and clear to auscultation bilaterally AUSCULTATION: clear to auscultation bilaterally Cardio: COMMON NORMALS: no JVD, regular rhythm, S1 normal heart sound present, S2 normal heart sound present and No murmurs present (Cardio) RHYTHM: regular rhythm HEART SOUNDS: S1 normal heart sound present and S2 normal heart sound present GI: COMMON NORMALS: Normal to inspection, nondistended, normoactive bowel sounds present and Soft to palpation PALPATION: Yes Soft to palpation and Yes Tenderness to palpation present (GI) Extremity: COMMON NORMALS: no joint enlargement and no pedal edema Neuro: COMMON NORMALS: patient oriented x3 and moves all extremities SENSORIUM/ORIENTATION: Yes alert Skin: COMMON NORMALS: no rashes or lesions noted GENERAL SKIN EXAM: no rashes or lesions noted Discharge Data Studies Completed and Pending Completed Studies During Hospitalization Category Date Time Status CT abdomen pelvis wo con [id number] Stat Cat Scan 12/16/22 19:15 Completed Pending at discharge Category Date Time Status Clostridioides Difficile PCR Routine Lab 12/17/22 15:47 Results Complete Blood Count w/Auto AM LABS Lab 12/19/22 04:00 Ordered Enteric Bacterial Panel by PCR Routine Lab 12/17/22 15:47 Results Enteric Parasite Panel by PCR Routine Lab 12/17/22 15:47 Results Immunochemical Fecal OCB Routine Lab 12/17/22 15:47 Results Lactoferrin Routine Lab 12/17/22 15:47 Results Radiology Impressions Abdomen/Pelvis CT 12/16/22 19:15 IMPRESSION: 1. Mid sigmoid colon diverticulitis. 2. Left kidney cyst, negative for follow-up advised. 3. Nodular prostate gland enlargement. 4. Small to moderate amount of nonspecific fluid in the pelvis. COMMENTS: Consistent with the [employer]'s Incidental Findings Committee white paper (J Am Tip Radiol 2018): Any incidental renal lesion less than 1 cm or classified as too small to characterize, or any incidental cystic renal lesion characterized as simple-appearing, is likely benign. No follow-up imaging is recommended for these lesions per consensus recommendations based on imaging criteria. Laboratory Results WBC 5.8 10^3/uL (4.0-10.0) 12/18/22 05:50 RBC 3.98 10^6/uL (4.1-5.3) L 12/18/22 05:50 Hgb 12.1 g/dL (11.7-16.6) 12/18/22 05:50 Hct 36.9 % (42.0-52.0) L 12/18/22 05:50 MCV 92.7 fl (80-94) 12/18/22 05:50 MCH 30.4 pg (28.0-34.0) 12/18/22 05:50 MCHC 32.8 g/dL (30.0-36.0) 12/18/22 05:50 RDW 12.2 % (12.1-15.1) 12/18/22 05:50 Plt Count 151 10^3/cmm (130-400) 12/18/22 05:50 MPV 10.0 fL (7.4-10.4) 12/18/22 05:50 Neut % (Auto) 55.7 % 12/18/22 05:50 Lymph % (Auto) 28.4 % 12/18/22 05:50 [place] % (Auto) 12.8 % 12/18/22 05:50 Eos % (Auto) 1.9 % 12/18/22 05:50 Baso % (Auto) 0.9 % 12/18/22 05:50 Neut # (Auto) 3.25 10^3/uL (1.8-7.7) 12/18/22 05:50 Lymph # (Auto) 1.7 10^3/uL (0.8-4.8) 12/18/22 05:50 [place] # (Auto) 0.8 10^3/uL (0.2-0.9) 12/18/22 05:50 Eos # (Auto) 0.1 10^3/uL (0.0-0.8) 12/18/22 05:50 Baso # (Auto) 0.1 10^3/uL (0.0-0.1) 12/18/22 05:50 Nucleated RBC % (auto) 0 % 12/18/22 05:50 Nucleated RBCs # 0.0 /100WBC 12/18/22 05:50 ESR 6 mm/hr (0-10) 12/16/22 19:51 Sodium 139 mmol/L (136-145) 12/18/22 05:50 Potassium 4.6 mmol/L (3.5-5.1) 12/18/22 05:50 Chloride 104 mmol/L (98-107) 12/18/22 05:50 Carbon Dioxide 27 mmol/L (22-29) 12/18/22 05:50 Anion Gap 12.6 (5-19) 12/18/22 05:50 BUN 8 mg/dL (8-23) 12/18/22 05:50 Creatinine 1.0 mg/dL (0.7-1.2) 12/18/22 05:50 GFR Calculation Not Reportable 12/18/22 05:50 Glucose 83 mg/dL (65-115) 12/18/22 05:50 Estimat Average Glucose 85 12/18/22 05:50 Hemoglobin A1c 4.6 % (4.0-6.0) 12/18/22 05:50 Calculated Osmolality 285 mOsm/kg (285-295) 12/18/22 05:50 Lactic Acid 1.8 mmol/L (0.5-2.2) 12/16/22 19:51 Calcium 8.8 mg/dL (8.5-10.5) 12/18/22 05:50 Magnesium 1.8 mg/dL (1.7-2.3) 12/16/22 19:51 Iron 21 ug/dL (59-158) L 12/17/22 04:19 TIBC 202 mcg/dl 12/17/22 04:19 % Saturation 10.3 % (20-50) L 12/17/22 04:19 Unsat Iron Binding 181 ug/dL (112-347) 12/17/22 04:19 Total Bilirubin 0.4 mg/dL (0.15-1.2) 12/18/22 05:50 AST 15 U/L (0-40) 12/18/22 05:50 ALT 10 U/L (0-41) 12/18/22 05:50 Alkaline Phosphatase 52 U/L (40-130) 12/18/22 05:50 C-Reactive Protein 63.0 mg/L (0.0-4.9) H 12/16/22 19:51 Total Protein 5.7 g/dL (6.6-8.7) L 12/18/22 05:50 Albumin 3.3 g/dL (3.5-5.2) L 12/18/22 05:50 Globulin 2.4 g/dL (1.3-4.6) 12/18/22 05:50 Triglycerides 62 mg/dL (0-150) 12/18/22 05:50 Cholesterol 128 mg/dL (0-200) 12/18/22 05:50 LDL Cholesterol, Calc 78 mg/dL (50-129) 12/18/22 05:50 Total VLDL Cholesterol 12 mg/dL (0-30) 12/18/22 05:50 HDL Cholesterol 38 mg/dL (60-100) L 12/18/22 05:50 Cholesterol/HDL Ratio 3.37 mg/dL (1.0-5.00) 12/18/22 05:50 Vitamin B12 339 pg/mL (232-1245) 12/17/22 04:19 Folate 8.0 ng/mL (4.5-32.2) 12/17/22 04:19 Procalcitonin 0.12 ng/mL (0-0.5) 12/17/22 04:19 TSH 2.29 uIU/mL (0.27-4.20) 12/17/22 04:19 Urine Color Yellow (Yellow) 12/16/22 19:25 Urine Appearance Clear (CLEAR) 12/16/22 19:25 Urine pH 7 (5-7) 12/16/22 19:25 Ur Specific [place] 1.005 (1.005-1.030) 12/16/22 19:25 Urine Protein Neg (Negative) 12/16/22 19:25 Urine Glucose (UA) Norm (Normal) 12/16/22 19:25 Urine Ketones 1+ (Negative) H 12/16/22 19:25 Urine Blood Neg (Negative) 12/16/22 19:25 Urine Nitrate Negative (Negative) 12/16/22 19:25 Urine Bilirubin Neg (Negative) 12/16/22 19:25 Urine Urobilinogen Norm mg/dL (Negative) 12/16/22 19:25 Ur Leukocyte Esterase Negative (Negative) 12/16/22 19:25 Influenza Type A Ag negative (Negative) 12/16/22 20:00 Influenza Type B Ag negative (Negative) 12/16/22 20:00 SARS-CoV-2 Ag (Rapid) negative (Negative) 12/16/22 20:00 Vitals Last Vital Signs Temp 98 F 12/18/22 08:00 Pulse 77 12/18/22 08:00 Resp 17 12/18/22 08:00 BP 124/60 12/18/22 08:00 Pulse Ox 99 12/18/22 08:00 O2 Del Method 12/18/22 08:00 O2 Flow Rate 98 12/18/22 04:00 Discharge Plan Discharge Patient Disposition: Home Condition: Stable Prescriptions: New Cipro 500 mg tablet 500 mg PO Q12H Qty: 14 0RF metronidazole 500 mg tablet 500 mg PO Q8H 7 Days Qty: 21 0RF Continued fluticasone propionate [Allergy Relief (fluticasone)] 50 mcg/actuation spray,suspension 1 spray intranasal DAILY Rx Instructions: administer into each nostril selenium sulfide 2.5 % lotion 1 each TOPICAL .3 TIMES WEEKLY emtricitabine-tenofovir (TDF) [Truvada] 200-300 mg tablet See Rx Instructions PO DAILY Qty: 30 0RF Rx Instructions: 2 tablets taken 2 to 24hr prior sexual activity, 1 tablet 24 hours later, 1 tablet 24 hours after that. 1 tablet loading dose if more than 1 sex encounter per week clonazepam 2 mg tablet 4 mg PO .nightly PRN (Reason: anxiety) 30 Days Qty: 60 3RF [id number]-gknnhgn-zncdpder 50-325-40 mg capsule 1 cap PO DAILY PRN (Reason: pain) 30 Days Qty: 30 2RF lactulose 20 gram/30 mL solution 30 g PO DAILY PRN (Reason: constipation) Qty: 1200 0RF azelastine 137 mcg (0.1 %) aerosol,spray 1 spray intranasal BID thyroid (pork) [[place] Thyroid] 30 mg tablet 30 mg PO DAILY Qty: 90 1RF tramadol 50 mg Tablet 50 mg PO QID PRN (Reason: Pain) ergocalciferol (vitamin D2) 1,250 mcg (50,000 unit) capsule 50,000 unit PO Q7D Discharge Orders: Discharge Order (Routine); Ordered 12/18/22 Ordered By: Celestine Dahl Referrals: Jorje Bentley MD [Primary Care Provider] - 12/24/22 10:00 am ([phone]) Discharge Diet: As Directed Discharge Activity: Resume usual activity and Increase activity as tolerated Patient Instructions: [place] Diet - Adult, Diverticulitis, Ciprofloxacin (By mouth), Metronidazole (By mouth), MIS-A (Multisymptom Inflammatory Syndrome in Adults) (GEN), Opioid Safety Activity Restrictions/Additional Instructions: For now take BRAT diet which includes bananas, rice, applesauce and toast. Advance to a regular diet gradually within next couple of weeks. Do not stop taking fibers. Continue taking your antibiotics as prescribed for next 5 days. Please follow-up with a primary care provider within next 1 week. For now continue doing milk of magnesia cleanout every other day Discharge Attestations Time Spent in Discharge Care*: greater than 30 min Specific Discharge Activities: educating patient, educating and/or supporting family/caregiver, discussing with pcp/other providers, discussing with catalytic case operator/social workers/dc planners, documenting/other paperwork and evaluating patient/reviewing data Status at Discharge: Cognitive status at discharge: cognitively intact , Behavioral status at discharge: cooperative , Functional status at discharge: independent ambulation , Overall status at discharge: patient is progressing back to baseline Quality Metrics Clinical Quality Measures [ No reported AMI, CVA or VTE this stay] Coding Level of Care Code 53961 Total time (in minutes) for Discharge: 50 Diagnoses Sigmoid diverticulitis K57.32 Free fluid in pelvis R18.8 SIRS (systemic inflammatory response syndrome) R65.10 Elevated blood pressure reading R03.0 BPH (benign prostatic hyperplasia) N40.0
[2022-12-18 12:00] VITALS: BP 115/58; PULSE 68; RESP 17; TEMP 36.7; O2SAT 98
[2022-12-18 12:04] VITALS: BP 124/60; PULSE 77; RESP 17; TEMP 36.6; O2SAT 99
== END 2022-12-18 12:18 | disposition home or self-care (01) | DRG 392 ==
LOC: ER 20:21 → ICU 21:24 → MEDSURG 12-17 05:56
PROVIDERS: Admitting Provider Internal Medicine; Emergency Provider Nurse Practitioner Family; PCP Family Medicine; Visit Provider Student in an Organized Health Care Education/Training Program
DX: K57.32 Diverticulitis of large intestine without perforation or abscess without bleeding (principal); E87.1 Hypo-osmolality and hyponatremia; K59.09 Other constipation; N40.1 Benign prostatic hyperplasia with lower urinary tract symptoms; R35.0 Frequency of micturition; R35.1 Nocturia; Z79.891 Long term (current) use of opiate analgesic; F41.9 Anxiety disorder, unspecified; I10 Essential (primary) hypertension; E03.9 Hypothyroidism, unspecified; G89.29 Other chronic pain; M54.9 Dorsalgia, unspecified; E86.1 Hypovolemia
CPT/HCPCS: 36415; 74176; 80048; 80053; 80061; 81003; 82274; 82607; 82746; 83036; 83540; 83550; 83605; 83630; 83735; 84145; 84443; 85025; 85651; 86140; 87426; 87493; 87506; 87804; 96361; 96372; 96374; 96375; 99285; G0378; J0744; J1644; J2270; J2405; J3490; J7040; J7120

== ENCOUNTER → 2023-07-10 16:23 | Outpatient (BNVA) | payer MEDICARE, SELFPAY | PROVIDERS: PCP Family Medicine; Visit Provider Family Medicine | DX: N40.0 Benign prostatic hyperplasia without lower urinary tract symptoms (principal); E03.9 Hypothyroidism, unspecified; E55.9 Vitamin D deficiency, unspecified; K59.09 Other constipation; I49.5 Sick sinus syndrome | CPT/HCPCS: 80053; 82306; 82728; 83540; 83735; 84154; 84443; 85025; 86140; 87806 ==

== ENCOUNTER 2024-02-19 13:20 | Outpatient (CLI) | payer MEDICARE, OTHER, SELFPAY ==
--- NOTE | 2024-02-19 13:28 | XRR_ITS ---
PROCEDURE INFORMATION: Exam: XR Chest Exam date and time: 02/19/2024 2:04 PM Age: 78 years old Clinical indication: Patient HX: Check for pneumonia, flu and cough x 10 days; Additional info: 13 day cough and congestion TECHNIQUE: Imaging protocol: Radiologic exam of the chest. Views: 2 views. COMPARISON: CR XR chest 1V [id number] 05/08/2019 11:18 AM FINDINGS: Lungs: No focal consolidation. Pleural spaces: No evidence of pneumothorax. No evidence of pleural effusion. Heart/Mediastinum: Cardiomediastinal silhouette is within normal limits. Bones/joints: No evidence of acute osseous abnormality. XR/XR chest 2V* [id number] IMPRESSION: 1. No acute cardiopulmonary abnormality.
== END 2024-02-19 13:21 | disposition home or self-care (01) ==
LOC: RAD 13:21
PROVIDERS: PCP Family Medicine; Visit Provider Family Medicine
DX: J41.1 Mucopurulent chronic bronchitis (principal)
CPT/HCPCS: 71046

== ENCOUNTER → 2024-06-03 15:45 | Outpatient (BNVA) | payer MEDICARE, OTHER, SELFPAY | PROVIDERS: PCP Family Medicine; Visit Provider Family Medicine | DX: M35.3 Polymyalgia rheumatica (principal) | CPT/HCPCS: 85651 ==

== ENCOUNTER → 2024-06-17 11:05 | Outpatient (BNVA) | payer MEDICARE, OTHER, SELFPAY | PROVIDERS: PCP Family Medicine; Visit Provider Nurse Practitioner Family | DX: Z13.6 Encounter for screening for cardiovascular disorders (principal); Z12.5 Encounter for screening for malignant neoplasm of prostate; Z79.899 Other long term (current) drug therapy | CPT/HCPCS: 80053; 80061; 81003; 86140; G0103 ==